=== PATIENT | female | born 1990 | race Caucasian/White ===

== ENCOUNTER 2018-06-18 20:45 | Emergency (ER) | payer BC, MEDICAID ==
[2018-06-18] MEDS: ONDANSETRON 4 MG INJ IV (21:17)
[2018-06-18] MEDS: HYDROmorphONE 2 MG/ML SYG IV (21:18)
== END 2018-06-18 23:37 | disposition home or self-care (01) ==
LOC: E/R 20:45
DX: S00.01XA Abrasion of scalp, initial encounter (principal); F17.210 Nicotine dependence, cigarettes, uncomplicated; R51 Headache; Y08.89XA Assault by other specified means, initial encounter
CPT/HCPCS: 70450; 71045; 72125; 96374; 96375; 99285-25